=== PATIENT | female | born 1980 | race Caucasian/White ===

== ENCOUNTER 2018-03-18 10:37 | Inpatient (IN) | payer BC ==
[~2018-03-18] VITALS: Ht 162.6 cm; Wt 92.7 kg
[2018-03-18] MEDS ORDERED: OXYTOCIN 30U/ 0.9% NaCL 500ML 500 ML IV SCH (15:30)
[2018-03-18] MEDS ORDERED: LACTATED RINGERS 1,000 ML IVBOLUS ONE (15:30)
[2018-03-18] MEDS ORDERED: SODIUM CITRATE/CITRIC ACID 30 ML UDC PO ONE (15:30)
[2018-03-18] MEDS ORDERED: LACTATED RINGERS 1,000 ML IV SCH ×3 (15:30→20:51)
[2018-03-18] MEDS ORDERED: METOCLOPRAMIDE 5 MG/ML, 2ML IV ONE (15:30)
[2018-03-18 15:34] VITALS: BP 142/91
[2018-03-18] MEDS ORDERED: NEWBORN KIT ONE (15:39)
[2018-03-18 16:15] LABS: BASOPHILS # (AUTO) 0.04 x10^3/uL (0-0.1); BASOPHILS % (AUTO) 0 % (0-1); EOSINOPHILS % (AUTO) 1 % (1-7); LYMPHOCYTES # (AUTO) 1.74 x10^3/uL (1-3.4); LYMPHOCYTES % (AUTO) 19 % (22-44); MD NO; MEAN CORPUSCULAR HEMOGLOBIN 29.2 pg (27.0-34.8); MEAN CORPUSCULAR HGB CONC 34.1 g/dL (32.4-35.8); MEAN CORPUSCULAR VOLUME 85.7 fL (80-100); MEAN PLATELET VOLUME 7.6 fL (7.4-10.4); MONOCYTES # (AUTO) 0.53 x10^3/uL (0.2-0.8); MONOCYTES % (AUTO) 6 % (2-9); NEUTROPHILS # (AUTO) 6.82 x10^3/uL (1.8-6.8); NEUTROPHILS % (AUTO) 74 % (42-75); PLATELET COUNT 218 x10^3/uL (130-400); RED BLOOD COUNT 4.61 x10^6/uL (3.82-5.3); RED CELL DISTRIBUTION WIDTH 13.9 % (9.6-15.2)
[2018-03-18 16:17] LABS: ALANINE AMINOTRANSFERASE 25 U/L (12-78); ALBUMIN 2.7 g/dL (3.4-5.0); ANION GAP 10 mmol/L (5-15); CALCIUM 8.4 mg/dL (8.5-10.1); CHLORIDE 108 mmol/L (98-107); CREATININE 0.64 mg/dL (0.55-1.02)
[2018-03-18 16:20] LABS: ALKALINE PHOSPHATASE 130 U/L (45-117); BILIRUBIN,TOTAL 0.3 mg/dL (0.2-1.0); TOTAL PROTEIN 6.7 g/dL (6.4-8.2)
[2018-03-18] MEDS ORDERED: morphine SULFATE/PF 0.5 MG/ML, 10ML ONE (16:21)
[2018-03-18 16:23] LABS: BILIRUBIN, DIRECT < 0.1 mg/dL (0.1-0.2)
[2018-03-18 16:24] LABS: PROTEIN/CREATININE RATIO,URINE < 102 (0-200); TOTAL PROTEIN,URINE RANDOM < 5 mg/dL (0-12)
[2018-03-18] MEDS ORDERED: TERBUTALINE 1 MG/ML, 1ML SQ ONE (17:00)
[2018-03-18] MEDS ORDERED: TERBUTALINE 1 MG/ML, 1ML ONE (18:26)
[2018-03-18] MEDS ORDERED: PHENYLEPHRINE 10 MG/ML ONE (19:21)
[2018-03-18] MEDS ORDERED: OXYTOCIN 10 UNITS/ML, 1ML ONE (19:21)
[2018-03-18] MEDS ORDERED: EPHEDRINE 50 MG/ML, 1ML ONE (19:21)
[2018-03-18] MEDS ORDERED: ONDANSETRON 2MG/ML, 2ML ONE (19:21)
[2018-03-18] MEDS ORDERED: WATER-INJECTION,STERILE 10 ML IV ONE (19:21)
[2018-03-18] MEDS ORDERED: EPINEPHRINE 1 MG/ML, 1ML ONE ×2 (19:21)
[2018-03-18] MEDS ORDERED: CEFAZOLIN 1,000 MG ONE (19:21)
[2018-03-18] MEDS ORDERED: GLYCOPYRROLATE 0.2MG/1ML, 5ML ONE (19:40)
[2018-03-18] MEDS ORDERED: KETOROLAC 30 MG/1 ML ONE (20:48)
[2018-03-18] MEDS ORDERED: OXYTOCIN 30U/ 0.9% NaCL 500ML 500 ML ONE (20:49)
[2018-03-18] MEDS ORDERED: morphine SULFATE 10 MG/ML, 1ML IVPush PRN ×2 (21:00)
[2018-03-18] MEDS ORDERED: OXYcodone/APAP 5/325MG TABLET PO PRN ×2 (21:00→22:00)
[2018-03-18] MEDS ORDERED: MISOPROSTOL 200 MCG TABLET PR PRN (21:00)
[2018-03-18] MEDS ORDERED: CALCIUM CARBONATE 500 MG TAB.CHEW PO PRN (21:00)
[2018-03-18] MEDS ORDERED: ONDANSETRON 2MG/ML, 2ML IV PRN (21:00)
[2018-03-18] MEDS: KETOROLAC 30 MG/1 ML IV SCH (21:03)
[2018-03-18] MEDS: LACTATED RINGERS 1,000 ML IV SCH (21:09)
[2018-03-18] MEDS: OXYTOCIN 30U/ 0.9% NaCL 500ML 500 ML IV SCH (21:12)
[2018-03-18] MEDS ORDERED: DIPHENHYDRAMINE 50 MG/ML, 1ML IV PRN (22:00)
[2018-03-18] MEDS ORDERED: NALOXONE 0.4 MG/ML, 1ML IV PRN (22:00)
[2018-03-18] MEDS ORDERED: KETOROLAC 30 MG/1 ML IVPush SCH (22:00)
[2018-03-18] MEDS ORDERED: HYDROmorphone 1 MG/ML, 1ML IVPush PRN (22:00)
[2018-03-18 22:20] VITALS: BP 123/69
[2018-03-19] VITALS (7 sets, daily range): BP systolic 109–130; BP diastolic 71–86
[2018-03-19] MEDS: KETOROLAC 30 MG/1 ML IV SCH ×3 (02:45→14:35)
[2018-03-19 03:27] LABS: BASOPHILS # (AUTO) 0.03 x10^3/uL (0-0.1); BASOPHILS % (AUTO) 0 % (0-1); EOSINOPHILS # (AUTO) 0.03 x10^3/uL (0-0.4); EOSINOPHILS % (AUTO) 0 % (1-7); LYMPHOCYTES # (AUTO) 1.55 x10^3/uL (1-3.4); LYMPHOCYTES % (AUTO) 14 % (22-44); MD NO; MEAN CORPUSCULAR HEMOGLOBIN 29.3 pg (27.0-34.8); MEAN CORPUSCULAR HGB CONC 34.2 g/dL (32.4-35.8); MEAN CORPUSCULAR VOLUME 85.7 fL (80-100); MEAN PLATELET VOLUME 7.7 fL (7.4-10.4); MONOCYTES # (AUTO) 0.51 x10^3/uL (0.2-0.8); MONOCYTES % (AUTO) 5 % (2-9); NEUTROPHILS # (AUTO) 8.68 x10^3/uL (1.8-6.8); NEUTROPHILS % (AUTO) 80 % (42-75); PLATELET COUNT 190 x10^3/uL (130-400); RED BLOOD COUNT 3.72 x10^6/uL (3.82-5.3); RED CELL DISTRIBUTION WIDTH 13.9 % (9.6-15.2)
[2018-03-19] MEDS: LACTATED RINGERS 1,000 ML IV SCH ×2 (06:51→16:51)
[2018-03-19] MEDS: OXYTOCIN 30U/ 0.9% NaCL 500ML 500 ML IV SCH ×2 (06:51→16:51)
[2018-03-19] MEDS: OXYcodone/APAP 5/325MG TABLET PO PRN ×3 (08:34→21:14)
[2018-03-19] MEDS: DOCUSATE 100 MG CAPSULE PO PRN ×2 (08:34→21:13)
[2018-03-19] MEDS: PRENATAL VIT/IRON/FA 1 EACH TABLET PO SCH (09:00)
[2018-03-19] MEDS: SIMETHICONE 80 MG CHEW TAB PO PRN (21:13)
[2018-03-19] MEDS: IBUPROFEN 600 MG TABLET PO PRN (21:13)
[2018-03-20] MEDS: LACTATED RINGERS 1,000 ML IV SCH ×3 (02:51→17:30)
[2018-03-20] MEDS: OXYTOCIN 30U/ 0.9% NaCL 500ML 500 ML IV SCH ×3 (02:51→17:30)
[2018-03-20] MEDS: SIMETHICONE 80 MG CHEW TAB PO PRN (03:13)
[2018-03-20] MEDS: IBUPROFEN 600 MG TABLET PO PRN ×3 (03:13→23:28)
[2018-03-20] MEDS: OXYcodone/APAP 5/325MG TABLET PO PRN ×5 (03:15→23:28)
[2018-03-20 07:30] VITALS: BP 127/86
[2018-03-20] MEDS: PRENATAL VIT/IRON/FA 1 EACH TABLET PO SCH (09:03)
[2018-03-20] MEDS: DOCUSATE 100 MG CAPSULE PO PRN ×2 (09:03→19:04)
[2018-03-20 19:00] VITALS: BP 129/88
[2018-03-21] MEDS: OXYcodone/APAP 5/325MG TABLET PO PRN (03:42)
[2018-03-21] MEDS: IBUPROFEN 600 MG TABLET PO PRN (06:37)
[2018-03-21 07:14] VITALS: BP 130/86
[2018-03-21] MEDS: PRENATAL VIT/IRON/FA 1 EACH TABLET PO SCH (10:08)
[2018-03-21] MEDS: DOCUSATE 100 MG CAPSULE PO PRN (10:08)
== END 2018-03-21 11:19 | disposition home or self-care (01) | DRG 788 ==
LOC: LDIP 15:12 → 2NW 22:18
PROVIDERS: ADMIT Obstetrics & Gynecology; ATTEND Obstetrics & Gynecology
PROC: 10D00Z1 Extraction of Products of Conception, Low, Open Approach (ICD-10-PCS; principal; 2018-03-18)
DX: O32.1XX0 Maternal care for breech presentation, not applicable or unspecified (principal); O69.81X0 Labor and delivery complicated by cord around neck, without compression, not applicable or unspecified; O99.824 Streptococcus B carrier state complicating childbirth; Z3A.39 39 weeks gestation of pregnancy; Z37.0 Single live birth
CPT/HCPCS: 36415; J3490; 76815; 80053; 82248; 82570; 84156; 84550; 85025; 86850; 86900; G0378; J0171; J0690; J1885; J2274; J2405; J2370; J2590; J2765; J3105; J7120